=== PATIENT | male | born 1940 | race Asian ===

== ENCOUNTER 2019-04-09 23:20 | Inpatient (IN) | payer MEDICARE, BC ==
[~2019-04-09] VITALS: Ht 177.8 cm; Wt 89.7 kg
[~2019-04-09 23:20] MED LIST: ALLO100T30 PO; APIX5TAB PO; ASPI-515 PO; ATEN100T PO; CLOP75TA52 PO; ENAL5TAB PO; FINA5TAB4 PO; FLUT1DIS3 INH; FURO20TA3 PO; GABA300C10 PO; GLIP-33 PO; ISOS10TA2 PO; LACT20SO13 PO; LOVA40TA2 PO; METO25TA35 PO; MULT1TAB60 PO; PRED5TAB PO; PREG100C PO; TERA5CAP3 PO; TIOT18CA INH
[2019-04-09] MEDS ORDERED: ALBUTEROL/IPRATROPIUM 2.5MG/0.5MG, 3 ML ONE (23:24)
[2019-04-09] MEDS ORDERED: ALBUTEROL/IPRATROPIUM 2.5MG/0.5MG, 3 ML NPPB ONE (23:30)
--- NOTE | 2019-04-09 23:31 | NUR ---
[facility]. PER EMT PT C/O COUGH AND SORE THROAT AND WAS FOUND TO BE 66% ON HOME O2 5L N/C. PT PLACED ON NONREBREATHER SPO2-88%, PT RECIEVED [id number], [id number], SOLUMEDEROL, AND 2 GM MAGNESIUM ON 10L NONREBREATHER SPO2 95%. ELEVATED DIDIMER GREATER THAN [address] SCAN DUE TO ELEVATED CREATINE. PT RECEIVED 5000 HEPARIN BOLUS AND 21.3 ML/HR HEPARIN GTT, TROPONIN -. PT HAS H/X COPD. MONITORS APPLIED, SIDERAILS UP X2, CALL LIGHT WITHIN REACH
--- NOTE | 2019-04-09 23:51 | NUR ---
PT RESTING CALMLY ON GURNEY, MONITORS IN PLACE, NAD, SPO2-95% ON 8.5L OXY MASK, CALL LIGHT WITHIN REACH
[2019-04-10] MEDS ORDERED: AZITHROMYCIN 500 MG in SODIUM CHLORIDE 0.9% 250 ML IV ONE
--- NOTE | 2019-04-10 00:13 | NUR ---
[employer] AT BEDSIDE FOR LAB DRAW, BLOOD C/X X 2 SETS
[2019-04-10] MEDS ORDERED: HEPARIN 25,000 UNITS/500ML PMX 500 ML IV PRN ×2 (00:30→01:00)
[2019-04-10] MEDS ORDERED: HEPARIN 5,000 UNITS/ML, 1ML IV ONE (00:30)
[2019-04-10] MEDS ORDERED: HEPARIN 5,000 UNITS/ML, 1ML IV PRN ×2 (00:30→01:00)
--- NOTE | 2019-04-10 00:34 | NUR ---
pharmacist on telephone, notified to start heparin gtt at 22 ml/hr. order received do not administer heparin bolus per erp
[2019-04-10 00:41] LABS: TROPONIN I < 0.015 ng/mL (0.000-0.045)
[2019-04-10] MEDS ORDERED: ALBUTEROL/IPRATROPIUM 2.5MG/0.5MG, 3 ML HHN PRN (01:00)
[2019-04-10 01:11] VITALS: BP 143/70
[2019-04-10] MEDS: methylPREDNISolone SOD SUCC 40 MG/ML IV SCH ×3 (02:24→17:08)
[2019-04-10] MEDS ORDERED: GABA-827 PO (04:46)
[2019-04-10] MEDS ORDERED: FLUT1BLS3 IH (04:46)
[2019-04-10] MEDS ORDERED: LISI-424 PO (04:46)
[2019-04-10] MEDS ORDERED: CARV3.12 PO (04:46)
[2019-04-10] MEDS ORDERED: SENN-177 PO (04:46)
[2019-04-10] MEDS ORDERED: ATOR20TA86 PO (04:46)
[2019-04-10] MEDS ORDERED: ROPI0.254 PO (04:46)
[2019-04-10] MEDS ORDERED: AMIT25TA PO (04:46)
[2019-04-10] MEDS ORDERED: CLOP75TA PO (04:46)
[2019-04-10] MEDS: CARVEDILOL 3.125 MG TABLET PO SCH ×2 (05:31→17:08)
[2019-04-10 06:44] VITALS: BP 135/70
[2019-04-10] MEDS: INSULIN LISPRO 100 UNITS/ML, PEN SQ-INSULIN SCH ×4 (07:00→20:57)
[2019-04-10] MEDS ORDERED: GABAPENTIN 300 MG CAPSULE PO SCH (09:00)
[2019-04-10] MEDS: BUDESONIDE 0.5 MG/2 ML INHA INH SCH ×2 (09:00→20:07)
[2019-04-10] MEDS: PREGABALIN 100 MG CAPSULE PO SCH (09:53)
[2019-04-10] MEDS: FINASTERIDE 5 MG TABLET PO SCH (09:53)
[2019-04-10] MEDS: FUROSEMIDE 20 MG TABLET PO SCH (09:53)
[2019-04-10] MEDS: ISOSORBIDE DINITRATE 10 MG TABLET PO SCH ×2 (09:54→20:56)
[2019-04-10] MEDS: GLIPizide ER 2.5 MG TABLET PO SCH (09:54)
[2019-04-10] MEDS: ALLOPURINOL 100 MG TABLET PO SCH (09:54)
[2019-04-10] MEDS: CLOPIDOGREL 75 MG TABLET PO SCH (09:54)
[2019-04-10] MEDS: GABAPENTIN 400 MG CAPSULE PO SCH ×2 (09:54→20:56)
[2019-04-10] MEDS: TERAZOSIN 5MG CAPSULE PO SCH (09:54)
[2019-04-10 12:16] LABS: TROPONIN I < 0.015 ng/mL (0.000-0.045)
[2019-04-10 13:04] LABS: HEMOGLOBIN A1C 7.5 % (4.2-6.3)
[2019-04-10] MEDS: ALBUTEROL/IPRATROPIUM 2.5MG/0.5MG, 3 ML NPPB SCH ×2 (13:35→20:07)
[2019-04-10 13:59] VITALS: BP 147/62
[2019-04-10] MEDS ORDERED: ROPINIROLE 0.5MG TABLET ONE (15:56)
[2019-04-10] MEDS: ROPINIROLE 0.25MG TABLET PO PRN (16:11)
[2019-04-10 18:53] VITALS: BP 156/63
[2019-04-10] MEDS: LOVASTATIN 40 MG TABLET PO SCH (20:56)
[2019-04-10] MEDS: ROPINIROLE 0.25MG TABLET PO SCH (20:56)
[2019-04-11] MEDS: AZITHROMYCIN 500 MG in SODIUM CHLORIDE 0.9% 250 ML IV SCH ×2 (00:07→22:50)
[2019-04-11 00:52] VITALS: BP 128/70
[2019-04-11] MEDS: methylPREDNISolone SOD SUCC 40 MG/ML IV SCH ×3 (02:27→18:09)
[2019-04-11 05:54] LABS: MEAN CORPUSCULAR HEMOGLOBIN 30.6 pg (27.5-34.5); MEAN CORPUSCULAR HGB CONC 32.2 g/dL (33.2-36.2); MEAN CORPUSCULAR VOLUME 94.9 fL (81-97); MEAN PLATELET VOLUME 8.2 fL (7.4-10.4); PLATELET COUNT 288 x10^3/uL (130-400); RED BLOOD COUNT 3.71 x10^6/uL (4.38-5.82); RED CELL DISTRIBUTION WIDTH 16.5 % (9.4-14.8)
[2019-04-11 06:08] LABS: ANION GAP 5 mmol/L (5-15); CALCIUM 8.9 mg/dL (8.5-10.1); CHLORIDE 101 mmol/L (98-107); CREATININE 1.87 mg/dL (0.7-1.3)
[2019-04-11] MEDS: CARVEDILOL 3.125 MG TABLET PO SCH ×2 (06:16→18:07)
[2019-04-11 06:17] LABS: BASOPHILS # (AUTO) 0.06 x10^3/uL (0-0.1); BASOPHILS % (AUTO) 0 % (0-1); EOSINOPHILS % (AUTO) 0 % (1-7); LYMPHOCYTES # (AUTO) 1.09 x10^3/uL (1-3.4); LYMPHOCYTES % (AUTO) 5 % (22-44); MD SCAN; MONOCYTES # (AUTO) 0.84 x10^3/uL (0.2-0.8); MONOCYTES % (AUTO) 4 % (2-9); NEUTROPHILS # (AUTO) 19.44 x10^3/uL (1.8-6.8); NEUTROPHILS % (AUTO) 91 % (42-75)
[2019-04-11] MEDS: ALBUTEROL/IPRATROPIUM 2.5MG/0.5MG, 3 ML NPPB SCH ×4 (07:15→19:14)
[2019-04-11] MEDS: BUDESONIDE 0.5 MG/2 ML INHA INH SCH ×2 (07:15→19:14)
[2019-04-11 08:24] VITALS: BP 157/71
[2019-04-11] MEDS: INSULIN LISPRO 100 UNITS/ML, PEN SQ-INSULIN SCH ×4 (08:25→21:54)
[2019-04-11] MEDS: FINASTERIDE 5 MG TABLET PO SCH (08:25)
[2019-04-11] MEDS: GABAPENTIN 400 MG CAPSULE PO SCH ×2 (08:26→21:55)
[2019-04-11] MEDS: FUROSEMIDE 20 MG TABLET PO SCH (08:26)
[2019-04-11] MEDS: TERAZOSIN 5MG CAPSULE PO SCH (08:26)
[2019-04-11] MEDS: ALLOPURINOL 100 MG TABLET PO SCH (08:26)
[2019-04-11] MEDS: GLIPizide ER 2.5 MG TABLET PO SCH (08:26)
[2019-04-11] MEDS: ISOSORBIDE DINITRATE 10 MG TABLET PO SCH ×2 (08:26→21:54)
[2019-04-11] MEDS: CLOPIDOGREL 75 MG TABLET PO SCH (08:26)
[2019-04-11] MEDS: PREGABALIN 100 MG CAPSULE PO SCH (08:26)
[2019-04-11 13:34] VITALS: BP 138/61
[2019-04-11] MEDS ORDERED: SODIUM POLYSTYRENE SULFONATE ORAL SUSP PO ONE ×2 (14:30→23:00)
[2019-04-11] MEDS: CEFTRIAXONE PMX 2GM/50ML 50 ML IV SCH (15:13)
[2019-04-11] MEDS: HEPARIN 5,000 UNITS/ML, 1ML SQ SCH ×2 (15:14→22:50)
[2019-04-11] MEDS: ROPINIROLE 0.25MG TABLET PO PRN (15:50)
[2019-04-11 18:35] VITALS: BP 169/64
[2019-04-11] MEDS: ROPINIROLE 0.25MG TABLET PO SCH (21:55)
[2019-04-11] MEDS: LOVASTATIN 40 MG TABLET PO SCH (21:55)
[2019-04-12 00:15] VITALS: BP 152/68
[2019-04-12] MEDS: methylPREDNISolone SOD SUCC 40 MG/ML IV SCH ×3 (02:29→17:16)
[2019-04-12] MEDS: ROPINIROLE 0.25MG TABLET PO PRN (02:29)
[2019-04-12] MEDS ORDERED: OMNIPAQUE 350 MG/ML, 100ML BOTTLE ONE (03:01)
[2019-04-12 05:40] LABS: MEAN CORPUSCULAR HEMOGLOBIN 29.4 pg (27.5-34.5); MEAN CORPUSCULAR HGB CONC 30.9 g/dL (33.2-36.2); MEAN CORPUSCULAR VOLUME 95.4 fL (81-97); MEAN PLATELET VOLUME 8.2 fL (7.4-10.4); PLATELET COUNT 298 x10^3/uL (130-400); RED BLOOD COUNT 3.83 x10^6/uL (4.38-5.82); RED CELL DISTRIBUTION WIDTH 16.7 % (9.4-14.8)
[2019-04-12 05:55] VITALS: BP 140/68
[2019-04-12] MEDS: CARVEDILOL 3.125 MG TABLET PO SCH ×2 (05:58→17:16)
[2019-04-12 06:01] LABS: ANION GAP 6 mmol/L (5-15); CHLORIDE 100 mmol/L (98-107); CREATININE 1.72 mg/dL (0.7-1.3)
[2019-04-12 06:16] LABS: BASOPHILS % (AUTO) 0 % (0-1); EOSINOPHILS % (AUTO) 0 % (1-7); LYMPHOCYTES # (AUTO) 1.02 x10^3/uL (1-3.4); LYMPHOCYTES % (AUTO) 5 % (22-44); MD SCAN; MONOCYTES # (AUTO) 0.61 x10^3/uL (0.2-0.8); MONOCYTES % (AUTO) 3 % (2-9); NEUTROPHILS # (AUTO) 18.05 x10^3/uL (1.8-6.8); NEUTROPHILS % (AUTO) 92 % (42-75)
[2019-04-12 06:48] VITALS: BP 155/80
[2019-04-12] MEDS: ALBUTEROL/IPRATROPIUM 2.5MG/0.5MG, 3 ML NPPB SCH ×4 (07:00→19:40)
[2019-04-12] MEDS: BUDESONIDE 0.5 MG/2 ML INHA INH SCH ×2 (07:10→19:40)
[2019-04-12] MEDS: INSULIN LISPRO 100 UNITS/ML, PEN SQ-INSULIN SCH ×4 (09:57→20:49)
[2019-04-12] MEDS: HEPARIN 5,000 UNITS/ML, 1ML SQ SCH ×2 (09:57→17:16)
[2019-04-12] MEDS: PREGABALIN 100 MG CAPSULE PO SCH (09:58)
[2019-04-12] MEDS: GLIPizide ER 2.5 MG TABLET PO SCH (09:58)
[2019-04-12] MEDS: FINASTERIDE 5 MG TABLET PO SCH (09:58)
[2019-04-12] MEDS: CLOPIDOGREL 75 MG TABLET PO SCH (09:58)
[2019-04-12] MEDS: ALLOPURINOL 100 MG TABLET PO SCH (09:58)
[2019-04-12] MEDS: GABAPENTIN 400 MG CAPSULE PO SCH ×2 (09:58→20:02)
[2019-04-12] MEDS: TERAZOSIN 5MG CAPSULE PO SCH (09:58)
[2019-04-12] MEDS: ISOSORBIDE DINITRATE 10 MG TABLET PO SCH ×2 (09:58→20:02)
[2019-04-12] MEDS ORDERED: MAGNESIUM CITRATE 300ML ORAL SOL PO ONE (11:00)
[2019-04-12 11:27] LABS: ALANINE AMINOTRANSFERASE 28 U/L (12-78); ALKALINE PHOSPHATASE 89 U/L (45-117); BILIRUBIN,TOTAL 0.1 mg/dL (0.2-1.0); TOTAL PROTEIN 7.2 g/dL (6.4-8.2)
[2019-04-12 11:29] LABS: BILIRUBIN, DIRECT < 0.1 mg/dL (0.1-0.2)
[2019-04-12 11:49] LABS: FREE T4 (FREE THYROXINE) 0.98 ng/dL (0.76-1.46)
[2019-04-12 14:00] VITALS: BP 157/80
[2019-04-12] MEDS: CEFTRIAXONE PMX 2GM/50ML 50 ML IV SCH (16:33)
[2019-04-12 18:58] VITALS: BP 173/74
[2019-04-12] MEDS: LOVASTATIN 40 MG TABLET PO SCH (20:01)
[2019-04-12] MEDS: ROPINIROLE 0.25MG TABLET PO SCH (20:02)
[2019-04-12 20:49] VITALS: BP 165/72
[2019-04-12] MEDS ORDERED: ERGOCALCIFEROL 50,000 UNIT CAPSULE PO SCH (22:00)
[2019-04-12] MEDS ORDERED: INSULIN GLARGINE 100 UNITS/ML, PEN SQ-INSULIN SCH (22:00)
[2019-04-12] MEDS: AZITHROMYCIN 500 MG in SODIUM CHLORIDE 0.9% 250 ML IV SCH (23:24)
[2019-04-13 02:30] VITALS: BP 158/80
[2019-04-13] MEDS: HEPARIN 5,000 UNITS/ML, 1ML SQ SCH ×2 (02:46→11:59)
[2019-04-13] MEDS: methylPREDNISolone SOD SUCC 40 MG/ML IV SCH ×2 (02:46→08:48)
[2019-04-13 05:12] LABS: MEAN CORPUSCULAR HEMOGLOBIN 30.5 pg (27.5-34.5); MEAN CORPUSCULAR HGB CONC 32.1 g/dL (33.2-36.2); MEAN CORPUSCULAR VOLUME 95.1 fL (81-97); MEAN PLATELET VOLUME 8.5 fL (7.4-10.4); PLATELET COUNT 313 x10^3/uL (130-400); RED CELL DISTRIBUTION WIDTH 16.1 % (9.4-14.8)
[2019-04-13 05:17] VITALS: BP 172/80
[2019-04-13] MEDS: CARVEDILOL 3.125 MG TABLET PO SCH (05:19)
[2019-04-13 05:26] LABS: ANION GAP 5 mmol/L (5-15); CALCIUM 9.1 mg/dL (8.5-10.1); CHLORIDE 101 mmol/L (98-107); CREATININE 1.53 mg/dL (0.7-1.3)
[2019-04-13 05:51] LABS: BASOPHILS % (AUTO) 0 % (0-1); EOSINOPHILS % (AUTO) 0 % (1-7); LYMPHOCYTES # (AUTO) 1.45 x10^3/uL (1-3.4); LYMPHOCYTES % (AUTO) 7 % (22-44); MONOCYTES # (AUTO) 0.88 x10^3/uL (0.2-0.8); MONOCYTES % (AUTO) 5 % (2-9); NEUTROPHILS # (AUTO) 17.19 x10^3/uL (1.8-6.8); NEUTROPHILS % (AUTO) 88 % (42-75)
[2019-04-13] MEDS: ALBUTEROL/IPRATROPIUM 2.5MG/0.5MG, 3 ML NPPB SCH ×3 (06:30→14:08)
[2019-04-13 06:39] VITALS: BP 181/74
[2019-04-13 07:18] LABS: MD SCAN
[2019-04-13] MEDS ORDERED: hydrALAzine 20 MG/ML, 1ML IV ONE (07:30)
[2019-04-13] MEDS: TERAZOSIN 5MG CAPSULE PO SCH (08:48)
[2019-04-13] MEDS: ALLOPURINOL 100 MG TABLET PO SCH (08:49)
[2019-04-13] MEDS: PREGABALIN 100 MG CAPSULE PO SCH (08:49)
[2019-04-13] MEDS: GABAPENTIN 400 MG CAPSULE PO SCH (08:49)
[2019-04-13] MEDS: GLIPizide ER 2.5 MG TABLET PO SCH (08:49)
[2019-04-13] MEDS: CLOPIDOGREL 75 MG TABLET PO SCH (08:49)
[2019-04-13] MEDS: FINASTERIDE 5 MG TABLET PO SCH (08:49)
[2019-04-13] MEDS: ISOSORBIDE DINITRATE 10 MG TABLET PO SCH (08:49)
[2019-04-13] MEDS: INSULIN LISPRO 100 UNITS/ML, PEN SQ-INSULIN SCH ×3 (08:50→16:18)
[2019-04-13] MEDS: BUDESONIDE 0.5 MG/2 ML INHA INH SCH (09:00)
[2019-04-13 12:46] VITALS: BP 163/68
[2019-04-13] MEDS: CEFTRIAXONE PMX 2GM/50ML 50 ML IV SCH (16:13)
[2019-04-13] MEDS ORDERED: ERGO500017 PO (16:30)
[2019-04-13] MEDS ORDERED: PRED5TAB PO (16:30)
[2019-04-13] MEDS ORDERED: IPRA3AMP30 NPPB (16:30)
[2019-04-13] MEDS ORDERED: AZIT500T5 PO (16:30)
[2019-04-13] MEDS ORDERED: CEFD300C37 PO (16:30)
[2019-04-13] MEDS ORDERED: ISOSORBIDE DINITRATE 30 MG TABLET PO SCH (17:00)
== END 2019-04-13 18:10 | disposition home health service (06) | DRG 189 ==
LOC: ED 23:47 → EDIP 04-10 00:19 → 4WST 04-10 00:57
PROVIDERS: ADMIT Internal Medicine; ATTEND Internal Medicine
DX: J96.21 Acute and chronic respiratory failure with hypoxia (principal); N17.0 Acute kidney failure with tubular necrosis; J44.1 Chronic obstructive pulmonary disease with (acute) exacerbation; I13.0 Hypertensive heart and chronic kidney disease with heart failure and stage 1 through stage 4 chronic kidney disease, or unspecified chronic kidney disease; J98.11 Atelectasis; K80.20 Calculus of gallbladder without cholecystitis without obstruction; E11.22 Type 2 diabetes mellitus with diabetic chronic kidney disease; E55.9 Vitamin D deficiency, unspecified; E87.5 Hyperkalemia; G25.81 Restless legs syndrome; I25.10 Atherosclerotic heart disease of native coronary artery without angina pectoris; I50.9 Heart failure, unspecified; I35.0 Nonrheumatic aortic (valve) stenosis; I71.9 Aortic aneurysm of unspecified site, without rupture; M1A.9XX0 Chronic gout, unspecified, without tophus (tophi); N18.9 Chronic kidney disease, unspecified; N40.0 Benign prostatic hyperplasia without lower urinary tract symptoms; Z79.02 Long term (current) use of antithrombotics/antiplatelets; Z79.899 Other long term (current) drug therapy; Z86.711 Personal history of pulmonary embolism; Z87.891 Personal history of nicotine dependence; Z95.2 Presence of prosthetic heart valve; Z95.5 Presence of coronary angioplasty implant and graft; Z99.81 Dependence on supplemental oxygen; Z88.0 Allergy status to penicillin
CPT/HCPCS: 36415; 71045; 74021; 74176; 78582; 80048; 80076; 82306; 82607; 82962; 83036; 83735; 83880; 84439; 84443; 84481; 84484; 85025; 85379; 85520; 87040; 87081; 93005; 93306; 94640; 96365; G0378; J0456; J0696; J1644; J7620; J7626; Q9967; A9540; A9558; C9898; J0360; J1815; J2920; J7050